=== PATIENT | female | born 1990 | race Hispanic/Latino ===

== ENCOUNTER 2017-07-15 20:16 | Emergency (ER) | payer OTHER, SELFPAY ==
[2017-07-15] MEDS ORDERED: Ibuprofen 800 MG TAB PO SCH (20:45)
--- NOTE | 2017-07-15 22:08 | RAD ---
FOUR VIEWS LEFT KNEE: Date: 07-15-17 Comparison: None. History: Trauma, pain. FINDINGS: No knee joint effusion, displaced fracture or evidence of dislocation. IMPRESSION: No acute findings. POS: [facility]
== END 2017-07-15 21:42 | disposition home or self-care (01) ==
LOC: NAV ERS 20:16
DX: S83.92XA Sprain of unspecified site of left knee, initial encounter (principal); V89.2XXA Person injured in unspecified motor-vehicle accident, traffic, initial encounter